=== PATIENT | female | born 1990 | race Caucasian/White ===

== ENCOUNTER → 2017-06-27 | Emergency (ER) | payer OTHER ==
[~2017-06-27] VITALS: Ht 175.3 cm; Wt 97.5 kg
[~2017-06-27] MED LIST: PRENATABS FA T1 EACH
== END | disposition home or self-care (01) ==
LOC: ER 08:42 → EDSEX 08:54 → ER 08:54
DX: O20.0 Threatened abortion (principal); Z34.01 Encounter for supervision of normal first pregnancy, first trimester

== ENCOUNTER 2018-01-06 13:10 | Inpatient (IN) | payer OTHER ==
[~2018-01-06] VITALS: Ht 172.7 cm; Wt 3.6 kg
[2018-01-24] MEDS ORDERED: ALDOMET500 MG PO (14:13)
== END 2018-01-24 15:13 | DRG 788 ==
LOC: LDR 01-21 06:32 → O/R 01-21 08:40 → OB/GYN 01-21 10:15 → SURH 01-21 12:16 → OB/GYN 01-21 13:09
PROVIDERS: Specialist
PROC: 4A1HXCZ Monitoring of Products of Conception, Cardiac Rate, External Approach (ICD-10-PCS; 2018-01-21)
PROC: 10D00Z1 Extraction of Products of Conception, Low, Open Approach (ICD-10-PCS; principal; 2018-01-21 10:15)
DX: O64.8XX0 Obstructed labor due to other malposition and malpresentation, not applicable or unspecified (principal); O24.420 Gestational diabetes mellitus in childbirth, diet controlled; Z3A.38 38 weeks gestation of pregnancy; Z37.0 Single live birth

== ENCOUNTER 2018-01-14 09:17 | Outpatient (CLI) | payer OTHER | END 2018-01-14 09:52 | disposition home or self-care (01) | LOC: NST 09:17 | DX: O24.410 Gestational diabetes mellitus in pregnancy, diet controlled (principal); Z34.83 Encounter for supervision of other normal pregnancy, third trimester ==